=== PATIENT | male | born 1985 | race Caucasian/White ===

== ENCOUNTER 2017-03-06 01:53 | Emergency (ER) | payer OTHER ==
[2017-03-06 02:19] VITALS: BP 143/96; PULSE 88; RESP 18; TEMP 98.4; O2SAT 97
[2017-03-06] MEDS ORDERED: TDAP VACCINE 0.5 ML SUS IM ONE ×2 (02:27→02:28)
== END 2017-03-06 02:30 | disposition home or self-care (01) | DRG 605 ==
LOC: ED 01:53
DX: S61.212A Laceration without foreign body of right middle finger without damage to nail, initial encounter (principal); S61.511A Laceration without foreign body of right wrist, initial encounter
CPT/HCPCS: 12001; 90471; 90715; 99283; G0168